=== PATIENT | female | born 1980 | race Caucasian/White ===

== ENCOUNTER 2025-06-06 09:54 | Emergency (ER) | payer OTHER ==
[2025-06-06 10:11] VITALS: BP 155/72; PULSE 71; RESP 16; TEMP 98.7; BMI 43.5
[2025-06-06] MEDS ORDERED: IBUPROFEN 600 MG TABLET (FP) PO ONE (11:18)
[2025-06-06] MEDS ORDERED: ACETAMINOPHEN 325 MG TABLET (FP) ONE (11:18)
[2025-06-06] MEDS: IBUPROFEN 600 MG TABLET (FP) PO ONE (11:20)
[2025-06-06] MEDS: ACETAMINOPHEN 325 MG TABLET (FP) PO ONE (11:21)
== END 2025-06-06 11:25 | disposition home or self-care (01) ==
LOC: JER 09:54 → JERFT 09:54
DX: S93.601A Unspecified sprain of right foot, initial encounter (principal); W01.0XXA Fall on same level from slipping, tripping and stumbling without subsequent striking against object, initial encounter
CPT/HCPCS: 73610-TC-RT-FY; 73630-TC-RT-FY; 99283-25